=== PATIENT | female | born 1955 | race Caucasian/White ===

== ENCOUNTER 2017-11-20 08:23 | Outpatient (CLI) | payer SELFPAY ==
[2017-11-20 10:50] LABS: BILIRUBIN,URINE NEGATIVE (NEGATIVE); GLUCOSE, URINE (UA) NEGATIVE (NEGATIVE); KETONES,URINE (UA) NEGATIVE (NEGATIVE); LEUKOCYTE ESTERASE, URINE SMALL (NEGATIVE); NITRITE,URINE NEGATIVE (NEGATIVE); OCCULT BLOOD,URINE NEGATIVE (NEGATIVE); PH,URINE 7.5 PH (5.0-7.5); PROTEIN,URINE NEGATIVE (NEGATIVE); UROBILINOGEN,URINE 0.2 (NORMAL) E.U./dL (NORMAL)
[2017-11-20 10:51] LABS: CLARITY,URINE HAZY (CLEAR)
[2017-11-20 10:58] LABS: BASOPHILS # (AUTO) 0.1 10^3/uL (0.0-0.1); BASOPHILS % (AUTO) 1.1 %; EOSINOPHILS # (AUTO) 0.3 10^3/uL (0.0-0.7); EOSINOPHILS % (AUTO) 6.2 %; HGB - HEMOGLOBIN 12.3 g/dL (12.0-16.0); LYMPHOCYTES # (AUTO) 1.5 10^3/uL (1.5-3.5); LYMPHOCYTES % (AUTO) 28.9 %; MEAN CORPUSCULAR HEMOGLOBIN 29.8 pg (27.0-31.0); MEAN CORPUSCULAR HGB CONC 34.2 g/dL (32.0-36.0); MEAN CORPUSCULAR VOLUME 87.1 fL (81.0-99.0); MEAN PLATELET VOLUME 8.2 fL (7.9-10.8); MONOCYTES # (AUTO) 0.5 10^3/uL (0.0-1.0); MONOCYTES % (AUTO) 9.3 %; NEUTROPHILS # (AUTO) 2.7 10^3/uL (1.5-6.6); NEUTROPHILS % (AUTO) 54.5 %; PLT - PLATELET COUNT 261 10^3/uL (130-450); RED BLOOD COUNT 4.13 10^6/uL (4.20-5.40); RED CELL DISTRIBUTION WIDTH 14.1 % (12.0-15.0)
[2017-11-20 11:37] LABS: THYROID STIMULATING HORMONE 1.57 uIU/mL (0.34-5.60)
[2017-11-20 11:38] LABS: FREE T4 (FREE THYROXINE) 0.91 ng/dL (0.58-1.64)
[2017-11-20 11:44] LABS: FERRITIN 44.8 ng/mL (11.0-306.8)
[2017-11-20 11:46] LABS: FOLATE 14.66 ng/mL (5.90 - >24.8)
== END 2017-11-20 08:24 | disposition home or self-care (01) ==
LOC: LAB.F 08:23
PROVIDERS: ATTEND Naturopath
DX: N95.1 Menopausal and female climacteric states (principal); R53.81 Other malaise
CPT/HCPCS: 36415; 81003; 82306; 82607; 82728; 82746; 84439; 84443; 84481; 85025; 86140

== ENCOUNTER 2018-11-28 10:17 | Outpatient (CLI) | payer OTHER ==
--- NOTE | 2018-11-28 23:58 | XRAY Report ---
Reason: PAIN IN RIGHT FOOT Procedure Date: 11/28/2018 Accession Number: [id number] / [id number] Procedure: XR - Foot 3 View RT CPT Code: FULL RESULT: EXAM: RIGHT FOOT RADIOGRAPHY EXAM DATE: 11/28/2018 10:49 AM. CLINICAL HISTORY: PAIN IN RIGHT FOOT. Sharp intermittent pain at the base of the fourth digit in the joint. COMPARISON: None. TECHNIQUE: 3 views. FINDINGS: Bones: Normal. No fractures or bone lesions. Joints: Moderate third DIP osteoarthritis. No dislocation. Soft Tissues: Normal. No soft tissue swelling. IMPRESSION: No acute findings. Moderate third DIP osteoarthritis. [facility]
== END 2018-11-28 10:18 | disposition home or self-care (01) ==
LOC: DI 10:17
PROVIDERS: ATTEND Internal Medicine
DX: M19.071 Primary osteoarthritis, right ankle and foot (principal)

== ENCOUNTER 2022-11-05 11:22 | Outpatient (CLI) | payer MEDICARE ==
--- NOTE | 2022-11-05 16:38 | XRAY Report ---
PROCEDURE: Knee 3 View RT INDICATIONS: PAIN IN RIGHT KNEE TECHNIQUE: 3 views of the right knee(s) were acquired. COMPARISON: None. FINDINGS: Bones: No fractures or dislocations. No suspicious bony lesions. Mild tricompartmental knee joint d egeneration. Mild joint space narrowing in the lateral femorotibial compartment with weightbearing. Soft tissues: Trace joint effusion. No suspicious soft tissue calcifications. IMPRESSION: Mild degenerative joint disease. Reviewed by: Kalin Sethi MD on 11/05/2022 4:37 PM PDT Approved by: Kalin Sethi MD on 11/05/2022 4:37 PM PDT Station ID: [id number]
== END 2022-11-05 11:23 | disposition home or self-care (01) ==
LOC: DI.S 11:22
PROVIDERS: ATTEND Naturopath
DX: M17.11 Unilateral primary osteoarthritis, right knee (principal)

== ENCOUNTER 2022-11-30 13:20 | Outpatient (CLI) | payer MEDICARE | END 2022-11-30 13:21 | disposition home or self-care (01) | LOC: RT 13:20 | PROVIDERS: ATTEND Naturopath | DX: I49.9 Cardiac arrhythmia, unspecified (principal) | CPT/HCPCS: 93005 ==